=== PATIENT | female | born 1960 | race Two or more races ===

== ENCOUNTER 2024-06-24 12:30 | Inpatient (IN) | payer OTHER ==
[~2024-06-24] VITALS: Ht 61 cm; Wt 48.1 kg
[2024-06-24] MEDS ORDERED: [UNRECOGNIZED DRUG - OTHER] (16:13)
[2024-06-24] MEDS ORDERED: XYZAL5 MG PO (16:14)
[2024-06-24] MEDS ORDERED: ROSUVASTATIN CAL5 MG PO (16:14)
[2024-06-24 16:15] VITALS: BP 118/74
[2024-06-24] MEDS ORDERED: MONTELUKAST SODI4 M1 (16:15)
[2024-06-29] MEDS ORDERED: CEFTRIAXONE SODIUM 2,000 MG VIAL IV ONE (14:15)
[2024-06-29] MEDS ORDERED: LIDOCAINE HCL 1% 20 ML VIAL IJ ONE (14:15)
[2024-06-29] MEDS ORDERED: METRONIDAZOLE/SODIUM CHLORIDE 500 MG/100 ML PIGGYBACK IV ONE (14:15)
[2024-06-29] MEDS ORDERED: BUPIVACAINE HCL 30 ML VIAL IV ONE (14:15)
[2024-06-29] MEDS ORDERED: AMLODIPINE-BEN1 EAC3 (15:22)
[2024-06-29] MEDS ORDERED: FLONASE16 GM (15:22)
[2024-06-29] MEDS ORDERED: MONTELUKAST SOD10 MG (15:22)
[2024-06-29] MEDS ORDERED: RINGERS SOLUTION,LACTATED 1,000 ML IV SCH (15:45)
[2024-06-29] MEDS ORDERED: OxyCODONE HCL 5 MG TABLET (ROXICODONE) PO PRN (15:45)
[2024-06-29] MEDS ORDERED: ONDANSETRON HCL 2 MG/ML VIAL IV PRN (15:45)
[2024-06-29] MEDS ORDERED: DEXTROSE 50 % IN WATER 0.5 G/ML DISP.SYRIN IV PRN (15:45)
[2024-06-29] MEDS ORDERED: MORPHINE SULFATE 4 MG/ML CARTRIDGE IV PRN (15:45)
[2024-06-29] MEDS ORDERED: MORPHINE SULFATE 2 MG/ML CARTRIDGE IV ONE (16:30)
[2024-06-29] MEDS ORDERED: GABAPENTIN 300 MG CAPSULE PO SCH (17:00)
[2024-06-29] MEDS ORDERED: METOCLOPRAMIDE HCL 5 MG/ML VIAL IV SCH (17:00)
[2024-06-29] MEDS ORDERED: SIMETHICONE 125 MG CAPSULE PO SCH (17:00)
[2024-06-29] MEDS ORDERED: POLYETHYLENE GLYCOL 3350 17 GM BLIST.PACK PO SCH (17:00)
[2024-06-29] MEDS ORDERED: HYOSCYAMINE SULFATE 0.125 MG TAB.SUBL SL SCH (17:00)
[2024-06-29 18:51] VITALS: BP 110/70; O2SAT 97
[2024-06-29] MEDS ORDERED: ACETAMINOPHEN 500 MG GEL..CAP PO SCH (20:00)
[2024-06-29 20:05] LABS: HEMOGLOBIN 11.7 g/dL (12.0-15.00); MEAN CELL VOLUME 84.5 fL (80.00-100.00); MEAN CORPUSCULAR HEMOGLOBIN 27.4 pg (27.00-32.0); MEAN CORPUSCULAR HGB CONC 32.4 g/dl (32.0-36.0); PLATELET COUNT 272 K/uL (150-450); RED BLOOD COUNT 4.26 M/uL (4.00-6.00); RED CELL DISTRIBUTION WIDTH 14.9 % (11.5-14.5)
[2024-06-29] MEDS ORDERED: FAMOTIDINE/PF 20 MG/2 ML VIAL IV PUSH SCH (21:00)
[2024-06-30] VITALS: BP 153/81; O2SAT 97
[2024-06-30 06:20] LABS: HEMATOCRIT 37.1 % (36.0-45.00); HEMOGLOBIN 12.3 g/dL (12.0-15.00); MEAN CELL VOLUME 84.2 fL (80.00-100.00); MEAN CORPUSCULAR HEMOGLOBIN 27.9 pg (27.00-32.0); MEAN CORPUSCULAR HGB CONC 33.2 g/dl (32.0-36.0); PLATELET COUNT 282 K/uL (150-450); RED CELL DISTRIBUTION WIDTH 14.9 % (11.5-14.5)
[2024-06-30 06:42] LABS: ALBUMIN 3.4 gm/dL (3.4-5.0); CALCIUM 9.3 mg/dL (8.5-10.1); CREATININE SERUM 0.44 mg/dL (0.55-1.02); GFR 143.51; MAGNESIUM 1.5 mg/dL (1.8-2.4); PHOSPHOROUS 2.9 mg/dL (2.5-4.9); POTASSIUM 4.2 mEq/L (3.5-5.1)
[2024-06-30 08:16] VITALS: BP 128/78; O2SAT 95
[2024-06-30 16:00] VITALS: BP 134/87; O2SAT 95
[2024-06-30] MEDS ORDERED: ENOXAPARIN SODIUM 40 MG/0.4 ML SYRINGE SUBCUTANEO SCH (17:00)
[2024-07-01] VITALS: BP 116/69; O2SAT 98
[2024-07-01 08:00] VITALS: BP 164/96; O2SAT 100
[2024-07-01] MEDS ORDERED: ENOXAPARIN SODIUM 40 MG/0.4 ML SYRINGE SUBCUTANEO SCH (09:00)
[2024-07-01] MEDS ORDERED: INTESTINEX680 M2 PO (12:01)
[2024-07-01] MEDS ORDERED: LEVSIN/SL0.125 MG SL (12:01)
[2024-07-01] MEDS ORDERED: ACETAMINOPHEN500 M2 PO (12:02)
[2024-07-01] MEDS ORDERED: NEURONTIN300 MG PO (12:02)
[2024-07-01 16:17] VITALS: BP 140/80; O2SAT 98
== END 2024-07-01 18:00 | disposition home or self-care (01) | DRG 331 ==
LOC: O/R 06-29 10:10 → SURG 06-29 12:30 → SURH 06-29 16:58
PROVIDERS: ADMIT Surgery; ATTEND Surgery
PROC: 0DBP4ZZ Excision of Rectum, Percutaneous Endoscopic Approach (ICD-10-PCS; 2024-06-29)
PROC: 0DNW4ZZ Release Peritoneum, Percutaneous Endoscopic Approach (ICD-10-PCS; 2024-06-29)
PROC: 0DJD8ZZ Inspection of Lower Intestinal Tract, Via Natural or Artificial Opening Endoscopic (ICD-10-PCS; 2024-06-29)
PROC: 0DTN4ZZ Resection of Sigmoid Colon, Percutaneous Endoscopic Approach (ICD-10-PCS; principal; 2024-06-29 15:15)
DX: K56.50 Intestinal adhesions [bands], unspecified as to partial versus complete obstruction (principal); K57.30 Diverticulosis of large intestine without perforation or abscess without bleeding; K62.4 Stenosis of anus and rectum

== ENCOUNTER 2024-06-28 18:48 | Emergency (ER) | payer OTHER ==
[~2024-06-28] VITALS: Ht 157.5 cm; Wt 49.0 kg
[~2024-06-28 18:48] MED LIST: MONTELUKAST SODI4 M1; ROSUVASTATIN CAL5 MG PO; XYZAL5 MG PO; [UNRECOGNIZED DRUG - OTHER]
[2024-06-29] MEDS ORDERED: FLONASE16 GM (15:22)
[2024-06-29] MEDS ORDERED: AMLODIPINE-BEN1 EAC3 (15:22)
[2024-06-29] MEDS ORDERED: MONTELUKAST SOD10 MG (15:22)
== END 2024-06-28 21:19 | disposition home or self-care (01) ==
LOC: ER 18:50
DX: R10.9 Unspecified abdominal pain (principal); J45.909 Unspecified asthma, uncomplicated; I10 Essential (primary) hypertension; Z88.8 Allergy status to other drugs, medicaments and biological substances